=== PATIENT | female | born 1960 | race Two or more races ===

== ENCOUNTER 2017-07-03 20:04 | Emergency (ER) | payer OTHER, MEDICAID ==
[2017-07-03 20:31] VITALS: BP 136/77; PULSE 88; RESP 18; TEMP 98.9; O2SAT 97
--- NOTE | 2017-07-03 21:00 | ED PDOC ---
HPI: Head Injury Time Seen by Provider: 07/03/17 20:30 Chief Complaint (Nursing): Trauma Chief Complaint (Provider): Head injury History Per: Patient History/Exam Limitations: no limitations Onset/Duration Of Symptoms: Days (x 1) Patient States: Struck With Object Pain Scale Rating Of: 4 Additional Complaint(s): 56 year old female presents to the ED for evaluation of head injury, onset 1 day ago. 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 States she took Motrin and iced her head immediately. Her last dose of Motrin was 07:30 this morning. Today she is complaining of neck pain, fatigue, nausea, photophobia, dizziness and a headache (4 out of 10) . LNMP 1 1/2 years ago. Patient denies vomiting. PMD: none provided Past Medical History Reviewed: Historical Data, Nursing Documentation, Vital Signs Vital Signs: Last Vital Signs Temp 98.9 F 07/03/17 20:28 Pulse 88 07/03/17 20:28 Resp 18 07/03/17 20:28 BP 136/77 07/03/17 20:28 Pulse Ox 97 07/03/17 20:28 - Medical History PMH: No Chronic Diseases - Surgical History Surgical History: No Surg Hx - Family History Family History: States: Unknown Family Hx - Home Medications Home Medications: Ambulatory Orders Medication Instructions Recorded Meloxicam [Mobic] 15 mg PO DAILY #10 tab 07/03/17 - Allergies Allergies/Adverse Reactions: Allergies Allergy/AdvReac Type Severity Reaction Status Date / Time No Known Allergies Allergy Verified 07/03/17 20:27 Review of Systems ROS Statement: Except As Marked, All Systems Reviewed And Found Negative Eyes: Positive for: Other (photophobia) Gastrointestinal: Positive for: Nausea. Negative for: Vomiting Musculoskeletal: Positive for: Neck Pain Neurological: Positive for: Headache, Dizziness Physical Exam - Reviewed Nursing Documentation Reviewed: Yes Vital Signs Reviewed: Yes - Physical Exam Appears: Positive for: Well, Non-toxic, No Acute Distress Head Exam: Positive for: ATRAUMATIC, NORMOCEPHALIC Skin: Positive for: Normal Color, Warm, Dry Eye Exam: Positive for: EOMI, Normal appearance, PERRL Neck: Positive for: Painless ROM, Supple ((+) bilateral paracervical tenderness (-) vertebral tenderness) Cardiovascular/Chest: Positive for: Regular Rate, Rhythm Respiratory: Positive for: Normal Breath Sounds. Negative for: Decreased Breath Sounds, Accessory Muscle Use, Respiratory Distress Gastrointestinal/Abdominal: Positive for: Soft. 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 Negative for: Motor/Sensory Deficits, Aphasia, Facial Droop Comments: HEAD: tenderness to occipital area and left posterior parietal scalp (-) scalp hematoma (-) erythema (-) palpable bony deformity - ECG O2 Sat by Pulse Oximetry: 97 (RA) Pulse Ox Interpretation: Normal Medical Decision Making Medical Decision Making: Time; 20:28 Impression: closed head injury Initial Plan: --Head CT --Patient was offered medications for pain and declined. 2146 CT reviewed, radiology report follows EXAM: CT Head Without Intravenous Contrast CLINICAL HISTORY: 56 years old, female; Injury or trauma; Fall; Initial encounter; Concussion / head injury; Additional info: Closed head injury TECHNIQUE: Axial computed tomography images of the head/brain without intravenous contrast. All CT scans at this facility use one or more dose reduction techniques, viz.: automated exposure control; ma/kV adjustment per patient size (including targeted exams where dose is matched to indication; i.e. head); or iterative reconstruction technique. Coronal and sagittal reformatted images were created and reviewed. COMPARISON: No relevant prior studies available. FINDINGS: Brain: Minimal atrophy. No intracranial hemorrhage. No mass. No edema. Ventricles: No hydrocephalus. Bones/joints: No acute fracture. Soft tissues: Unremarkable. Sinuses: No acute sinusitis. Mastoid air cells: No mastoid effusion. Orbits: Unremarkable as visualized. IMPRESSION: 1. No intracranial hemorrhage. 2. Incidental/non-acute findings are described above. Thank you for allowing us to participate in the care of your patient. Dictated and Authenticated by: Eulogio Rojas MD 07/03/2017 9:36 PM Eastern Time ([place] & [place]) On re-evaluation, patient reports improvement of symptoms. On exam, patient remains AAOx3, in no acute distress. On exam, neck is supple, lungs CTA, cardiac RRR, abdomen is soft and non-tender, neuro exam shows no focal findings. Diagnostic results d/w the patient in great detail. Dx of closed head injury, headache, acute neck pain d/w the patient. Based on history, exam and diagnostic results plan will be for discharge and outpatient follow up. Advised to follow up with primary care physician in 1-2 days without fail. Advised to take medication as prescribed. Return to the emergency room at any time for any new or worsening symptoms. Patient states she fully agrees with and understands discharge instructions. States that she agrees with the plan and disposition. Verbalized and repeated discharge instructions and plan. I have given the patient opportunity to ask any additional questions. ---- Scribe Attestation: Documented by Tiffanie Butler, acting as a scribe for Danna Cheng PA-C Provider Scribe Attestation: All medical record entries made by the Scribe were at my direction and personally dictated by me. I have reviewed the chart and agree that the record accurately reflects my personal performance of the history, physical exam, medical decision making, and the department course for this patient. I have also personally directed, reviewed, and agree with the discharge instructions and disposition. Disposition - Clinical Impression Clinical Impression: Closed head injury, Neck pain - Patient ED Disposition Is Patient to be Admitted: No Counseled Patient/Family Regarding: Studies Performed, Diagnosis, Need For Followup, Rx Given - Disposition Referrals: [facility] [Outside] Disposition: Routine/Home Disposition Time: 21:58 Condition: STABLE Prescriptions: Meloxicam [Mobic] 15 mg PO DAILY #10 tab Instructions: Concussion in Adults, Closed Head Injury, Postconcussion Syndrome (DC), Minor Head Injury Forms: [employer] (Japanese) Print Language: NEPALI - POA Present On Arrival: None
--- NOTE | 2017-07-03 21:36 | CT ---
EXAM: CT Head Without Intravenous Contrast CLINICAL HISTORY: 56 years old, female; Injury or trauma; Fall; Initial encounter; Concussion / head injury; Additional info: Closed head injury TECHNIQUE: Axial computed tomography images of the head/brain without intravenous contrast. All CT scans at this facility use one or more dose reduction techniques, viz.: automated exposure control; ma/kV adjustment per patient size (including targeted exams where dose is matched to indication; i.e. head); or iterative reconstruction technique. Coronal and sagittal reformatted images were created and reviewed. COMPARISON: No relevant prior studies available. FINDINGS: Brain: Minimal atrophy. No intracranial hemorrhage. No mass. No edema. Ventricles: No hydrocephalus. Bones/joints: No acute fracture. Soft tissues: Unremarkable. Sinuses: No acute sinusitis. Mastoid air cells: No mastoid effusion. Orbits: Unremarkable as visualized. IMPRESSION: 1. No intracranial hemorrhage. 2. Incidental/non-acute findings are described above.
== END 2017-07-03 22:17 | disposition home or self-care (01) ==
LOC: H.ER 20:04
DX: S09.90XA Unspecified injury of head, initial encounter (principal); W22.8XXA Striking against or struck by other objects, initial encounter; Y99.0 Civilian activity done for income or pay